=== PATIENT | male | born 1935 | race Caucasian/White ===

== ENCOUNTER → 2018-03-01 | Outpatient (CLI) | payer OTHER | END | disposition home or self-care (01) | LOC: CFH 14:28 | PROVIDERS: ATTEND Family Medicine | DX: G31.89 Other specified degenerative diseases of nervous system (principal); R41.3 Other amnesia | CPT/HCPCS: 70551 ==

== ENCOUNTER 2020-02-02 15:50 | Emergency (ER) | payer MEDICARE, OTHER ==
[~2020-02-02] VITALS: Ht 167.6 cm; Wt 75.0 kg
--- NOTE | 2020-02-02 16:06 | NUR ---
ASSUMED CARE OF PATIENT. PATIENT SEEN AT HIS PRIMARY CARE OFFICE TODAY FOR LEFT SIDED CHEST PAIN THAT STARTED TODAY. EKG DONE. VS STABLE. NO ACUTE DISTRESS NOTED. CALL LIGHT IN PLACE. WILL CONTINUE TO MONITOR.
[2020-02-02] MEDS ORDERED: LISI1TAB19 PO (16:25)
[2020-02-02] MEDS ORDERED: DONE5TAB7 PO (16:26)
[2020-02-02] MEDS ORDERED: ROSUVASTATIN CALCIUM (16:26)
[2020-02-02] MEDS ORDERED: SODIUM CHLORIDE FLUSH 10ML SYR IVF ONE (16:30)
[2020-02-02] MEDS ORDERED: ASPI81TA50 PO (16:30)
[2020-02-02 16:48] LABS: BASOPHILS # (AUTO) 0.02 x10^3/uL (0-0.1); BASOPHILS % (AUTO) 0 % (0-1); EOSINOPHILS # (AUTO) 0.13 x10^3/uL (0-0.4); EOSINOPHILS % (AUTO) 2 % (1-7); LYMPHOCYTES # (AUTO) 1.59 x10^3/uL (1-3.4); LYMPHOCYTES % (AUTO) 18 % (22-44); MD NO; MEAN CORPUSCULAR HEMOGLOBIN 31.1 pg (27.5-34.5); MEAN CORPUSCULAR HGB CONC 33.2 g/dL (33.2-36.2); MEAN CORPUSCULAR VOLUME 93.6 fL (81-97); MEAN PLATELET VOLUME 7.7 fL (7.4-10.4); MONOCYTES # (AUTO) 0.88 x10^3/uL (0.2-0.8); MONOCYTES % (AUTO) 10 % (2-9); NEUTROPHILS # (AUTO) 6.47 x10^3/uL (1.8-6.8); NEUTROPHILS % (AUTO) 71 % (42-75); PLATELET COUNT 181 x10^3/uL (130-400); RED BLOOD COUNT 4.99 x10^6/uL (4.38-5.82); RED CELL DISTRIBUTION WIDTH 13.9 % (9.4-14.8)
--- NOTE | 2020-02-02 16:57 | NUR ---
REPORT RECEIVED FROM SYLVIA LOTT.
--- NOTE | 2020-02-02 16:57 | NUR ---
PT IN THE 80'S ON RA ON PULSE OX. PT PLACED ON 2L NC. DR DICKSON IN ROOM UPDATING PATIENT. MASK PLACED ON PATIENT.
--- NOTE | 2020-02-02 16:58 | NUR ---
REPORT CALLED INTO SYLVIA GOOD ON RESP SIDE PT TO BE MOVED TO 23
[2020-02-02 17:08] LABS: ALBUMIN 3.5 g/dL (3.4-5.0); ANION GAP 6 mmol/L (5-15); CALCIUM 9.2 mg/dL (8.5-10.1); CHLORIDE 106 mmol/L (98-107)
[2020-02-02 17:11] LABS: ALANINE AMINOTRANSFERASE 32 U/L (12-78)
--- NOTE | 2020-02-02 17:17 | NUR ---
PT TRANSFERRED TO RESPIRATORY SIDE FOR HOLD. PT AO X 3, STRUGGLING WITH MONTH AND SAID YEAR WAS 2018. PT ANSWERED ALL OTHER ORIENTATION QUESTIONS APPROPRIATELY. PT ON CONT BP, CARDIAC AND O2 MONITORS. CALL LIGHT WITHIN REACH. WILL CONT TO MONITOR PT.
[2020-02-02 17:27] LABS: ALKALINE PHOSPHATASE 72 U/L (45-117); BILIRUBIN,TOTAL 0.4 mg/dL (0.2-1.0); TOTAL PROTEIN 7.8 g/dL (6.4-8.2); TROPONIN I < 0.015 ng/mL (0.000-0.045)
--- NOTE | 2020-02-02 18:07 | NUR ---
TASK RN: PT AMBULATORY WITH STEADY GAIT TO BATHROOM.
[2020-02-02 18:28] VITALS: BP 145/76
--- NOTE | 2020-02-02 18:28 | NUR ---
ERMD LAW WAS AT BEDSIDE TO DISCUSS RESULTS/POC. PT OFFERED ADMISSION VS DC HOME. RISKS VS BENEFITS DISCUSSED. PT VERBALIZED UNDERSTANDING. NO COUGH, FEVER, PAIN OR SOB NOTED. PT 94-95 RA AT ALL TIMES. CALL LIGHT WITHIN REACH. WILL CONT TO MONITOR PT.
== END 2020-02-02 18:54 | disposition home or self-care (01) ==
LOC: ED 16:21
DX: R07.1 Chest pain on breathing (principal); Z20.828 Contact with and (suspected) exposure to other viral communicable diseases; R00.0 Tachycardia, unspecified; I25.2 Old myocardial infarction; N18.3 Chronic kidney disease, stage 3 (moderate); E78.5 Hyperlipidemia, unspecified; I25.10 Atherosclerotic heart disease of native coronary artery without angina pectoris
CPT/HCPCS: 36415; 71045; 80053; 84484; 85025; 93005; 99285; U0001